=== PATIENT | male | born 1990 | race Two or more races ===

== ENCOUNTER 2021-09-30 02:16 | Emergency (ER) | payer OTHER ==
[2021-09-30] MEDS ORDERED: Bacitracin Oint 1 GM U/D Packet TOP ONE (02:53)
[2021-09-30] MEDS ORDERED: Lidocaine 1% 5 ML VIAL INJECT ONE (02:53)
== END 2021-09-30 03:09 | disposition home or self-care (01) ==
LOC: JP.ED 02:16
DX: L60.0 Ingrowing nail (principal)
CPT/HCPCS: 11765; 99282; 99283-25